=== PATIENT | male | born 1980 | race Caucasian/White ===

== ENCOUNTER 2018-02-04 19:18 | Emergency (ER) | payer SELFPAY ==
--- NOTE | 2018-02-04 19:53 | EDM.PDOC ---
ED HPI GENERAL MEDICAL PROBLEM - General Chief Complaint: General Stated Complaint: TOOTH PAIN Time Seen by Provider: 02/04/18 19:26 Source of Information: Reports: Patient History Limitations: Reports: No Limitations - History of Present Illness INITIAL COMMENTS - FREE TEXT/NARRATIVE: HISTORY AND PHYSICAL: History of present illness: Patient is a 37-year-old male who presents to the emergency room with complaints of her right upper dental pain after part of his tooth broke while eating granola 3 days ago. He states that he has not had any improvement with [id number] pain medication and is concerned that he may have an infection as he now has some gum swelling around the area. States he is here from [place] working, and is not sure when he will be home to see a dentist. Review of systems: As per history of present illness and below otherwise all systems reviewed and negative. Past medical history: As per history of present illness and as reviewed below otherwise noncontributory. Surgical history: As per history of present illness and as reviewed below otherwise noncontributory. Social history: No reported history of drug or alcohol abuse. Family history: As per history of present illness and as reviewed below otherwise noncontributory. Physical exam: General: Well developed and well nourished 37-year-old male. Alert and oriented. Nontoxic appearing and in no acute distress. HEENT: Atraumatic, normocephalic, pupils reactive, negative for conjunctival pallor or scleral icterus, mucous membranes moist, throat clear, neck supple, and nontender. Tooth #3 appears to be decayed (no nerve/root exposure) with errythema extending into the gum line. His trachea is midline with no meningeal signs. No drooling or trismus. Lungs: Clear to auscultation, breath sounds equal bilaterally, chest nontender. Heart: S1S2, regular rate and rhythm Abdomen: Soft, nondistended, nontender. Pelvis: Stable nontender. Genitourinary: Deferred. Rectal: Deferred. Extremities: Atraumatic, moves all extremities per self, negative for cords or calf pain. Neurovascular unremarkable. Neuro: Awake, alert, oriented. Cranial nerves II through XII unremarkable. Cerebellum unremarkable. Motor and sensory unremarkable throughout. Exam nonfocal. Diagnostics: [] Therapeutics: Dental balls Impression: Dental decay Plan: 1. Please take the medication as prescribed. Tramadol has been prescribed for pain management, please reserve this for her evening/nighttime use. This medication may cause drowsiness do not take it will driving her needing to be functioning at work. He may use Tylenol and/or ibuprofen as needed. Please use the topical "Dental Balls" we have given you as directed. 2. Follow up with the dentist in the next week. Return to the ED as needed and as discussed. Definitive disposition and diagnosis as appropriate pending reevaluation and review of above. Duration: Day(s): Location: Reports: Face right upper molar Pain Score (Numeric/FACES): 5 - Related Data Allergies Allergy/AdvReac Type Severity Reaction Status Date / Time No Known Allergies Allergy Verified 02/04/18 19:38 Home Meds: Home Meds . [No Known Home Meds] 02/04/18 [History] Past Medical History - Past Health History Medical/Surgical History: Denies Medical/Surgical History Psychiatric History: Reports: Anxiety Dermatologic History: Reports: Other (See Below) - Infectious Disease History Infectious Disease History: Reports: Chicken Pox Social & Family History - Family History Family Medical History: Noncontributory - Tobacco Use Smoking Status *Q: Current Every Day Smoker Years of Tobacco use: 18 Packs/Tins Daily: 0.5 - Caffeine Use Caffeine Use: Reports: Coffee - Recreational Drug Use Recreational Drug Use: No ED ROS GENERAL - Review of Systems Review Of Systems: ROS reveals no pertinent complaints other than HPI. ED EXAM, GENERAL - Physical Exam Exam: See Below (See dictation) Course - Vital Signs Last Recorded V/S: Last Vital Signs Temp 97.5 F 02/04/18 19:36 Pulse 66 02/04/18 19:36 Resp 18 02/04/18 19:36 BP 125/66 02/04/18 19:36 Pulse Ox 98 02/04/18 19:36 Departure - Departure Time of Disposition: 19:54 Disposition: Home, Self-Care 01 Clinical Impression: Dental decay - Discharge Information Referrals: PCP,None [Primary Care Provider] - Care Plan Goals: My general discharge The following information is given to patients seen in the emergency department who are being discharged to home. This information is to outline your options for follow-up care. We provide all patients seen in our emergency department with a follow-up referral. The need for follow-up, as well as the timing and circumstances, are variable depending upon the specifics of your emergency department visit. If you don't have a primary care physician on staff, we will provide you with a referral. We always advise you to contact your personal physician following an emergency department visit to inform them of the circumstance of the visit and for follow-up with them and/or the need for any referrals to a consulting specialist. The emergency department will also refer you to a specialist when appropriate. This referral assures that you have the opportunity for follow-up care with a specialist. All of these measure are taken in an effort to provide you with optimal care, which includes your follow-up. Under all circumstances we always encourage you to contact your private physician who remains a resource for coordinating your care. When calling for follow-up care, please make the office aware that this follow-up is from your recent emergency room visit. If for any reason you are refused follow-up, please contact the [facility] Emergency Department at and asked to speak to the emergency department charge nurse. [facility] [address] [place] [id number]. Please take the medication as prescribed. Tramadol has been prescribed for pain management, please reserve this for her evening/nighttime use. This medication may cause drowsiness do not take it will driving her needing to be functioning at work. He may use Tylenol and/or ibuprofen as needed. Please use the topical "Dental Balls" we have given you as directed. 2. Follow up with the dentist in the next week. Return to the ED as needed and as discussed.
[2018-02-04] MEDS ORDERED: Lidocaine 2% Viscous Solution 100 ML Bottle PO ONE ×2 (19:55→20:20)
[2018-02-04] MEDS ORDERED: Benzocaine 20% Topical Spray UD MUCMEM ONE (19:55)
[2018-02-04] MEDS ORDERED: Lidocaine 2% Viscous Solution 15 ML Cup PO ONE (20:21)
== END 2018-02-04 20:25 | disposition home or self-care (01) ==
LOC: MW.ED 19:18
DX: K02.9 Dental caries, unspecified (principal); F17.210 Nicotine dependence, cigarettes, uncomplicated
CPT/HCPCS: 99283; A9270

== ENCOUNTER 2018-03-30 21:04 | Emergency (ER) | payer MEDICAID ==
[2018-03-30] MEDS ORDERED: Clindamycin HCl 150 MG Cap ONE (21:54)
[2018-03-30] MEDS ORDERED: Benzocaine 20% Topical Spray UD MUCMEM ONE (21:56)
[2018-03-30] MEDS ORDERED: Lidocaine 2% Viscous Solution 15 ML Cup ONE (21:56)
== END 2018-03-30 22:30 | disposition home or self-care (01) ==
LOC: MW.ED 21:04
DX: K04.7 Periapical abscess without sinus (principal); Z91.018 Allergy to other foods
CPT/HCPCS: 99282; A9270